=== PATIENT | male | born 1950 | race Caucasian/White ===

== ENCOUNTER 2018-10-02 10:26 | Day surgery (SDC) | payer MEDICARE, OTHER ==
[~2018-10-02 10:26] MED LIST: DEXAMETHASONE SODIUM PHOSPHATE 10 MG/ML VIAL ONE; LACTATED RINGERS 1,000 ML IV.SOLN IV ONE; LIDOCAINE HCL 2% PF 100MG/5ML VIAL IJ ONE; ONDANSETRON HCL/PF 4 MG/ 2ML VIAL ONE; PROPOFOL 200 MG/20 ML VIAL IV ONE; SEVOFLURANE 250 ML LIQUID IH ONE; ceFAZolin SODIUM 1 GM VIAL ONE
[2018-10-02] MEDS ORDERED: fentaNYL CITRATE/PF 100 MCG/2 ML INJ. ONE ×2 (13:10→17:19)
[2018-10-02] MEDS ORDERED: HYDROmorphone HCL/PF 1 MG/ML VIAL ONE (17:19)
--- NOTE | 2018-10-03 15:28 | Operative Note ---
PREOPERATIVE DIAGNOSIS: 1. Carpal tunnel syndrome, left arm. 2. Cubital tunnel syndrome, left arm. POSTOPERATIVE DIAGNOSIS: 1. Carpal tunnel syndrome, left arm. 2. Cubital tunnel syndrome, left arm. PROCEDURES PERFORMED: 1. Endoscopic decompression of the median nerve at the left wrist. 2. Endoscopic decompression of the ulnar nerve at the left wrist. 3. Subcutaneous transposition of the ulnar nerve at the left elbow utilizing the intermuscular septum sling technique. 4. Microscopic fascicular neurolysis of the ulnar nerve at the left elbow. SURGEON: Gage Menchaca Jr., M.D. WATCH SUPERVISOR: None. ANESTHESIA: General. COMPLICATIONS: None. CONDITION FOLLOWING THE PROCEDURE: Good. OPERATIVE FINDINGS: Mr. Shaikh has electromyographically positive and symptomatic carpal tunnel syndrome and cubital tunnel syndrome. Given these abnormalities, and failure to respond to conservative treatment, surgical care was undertaken. This was carried out today. Endoscopic carpal tunnel release provided good visualization of the septum between Guyon's canal and the carpal canal. The ulnar nerve was found to be replaced or invested with a significant amount of fat from chronic pressure. He was transposed and stable in the transposed position and internal neurolysis carried out. DESCRIPTION OF PROCEDURE: The patient was taken to the operating room and placed in supine position. Skin infiltration with 2% lidocaine was carried out on the ulnar side of the wrist proximal to the wrist crease. It was also carried out at the ulnar aspect of the proximal palmar crease. The arm was then thoroughly scrubbed and sterilely prepped and draped. The arm was exsanguinated and tourniquet inflated. A small transverse incision was made on the ulnar aspect proximal to the wrist. Kilgore scissors were then used to penetrate the volar fascia and enter the carpal canal. A skin incision was also made within the skin crease at the confluence of a line extended from the ring finger and a line extended transversely from the base of the thumb-index webspace. The cannula with a boat obturator was then placed into the carpal tunnel through the proximal incision. The floor and the hamate were carefully probed sweeping all tendinous structures and soft tissue structures to the radial side. Keeping the boat obturator and the cannula directed in all the directions, the carpal tunnel was completely traversed holding on the soft tissue and tendinous structures to the radial side. Care was taken not to pass the cannula into Guyon canal. The boat obturator was then led to be externalized through the transverse incisions made in the palm. The opening in the cannula was then directed in the ulnar direction. The obturator was then removed, and the wrist was placed into the holding tray with hyperextension and digits held in extension. A cotton applicator was passed through the cannula. The endoscope was then inserted, visualizing the transverse carpal ligament and its confluence with the Guyon canal. Repositioning would be carried out if any tendinous structures were found creating an obstructive view of the transverse carpal ligament. Once a transverse carpal ligament unobstructed view was obtained, the white handle knife blade was inserted, and the proximal aspect of the transverse carpal ligament in its most ulnar extent was engaged. The knife was advanced, cutting through the layers of the transverse carpal ligament layer by layer until Guyon canal was entered. It was continued distally, and also a retrograded knife was used to engage the most distal aspect of the transverse carpal ligament and usually some hypothenar muscular fibers were engaged as well. Complete unification of the Guyon canal and the carpal canal was thus performed by dividing the transverse carpal ligament at its insertion on the hamate which left the transverse carpal ligament and the covering of the Guyon canal as an intact structure, now away from the hamate and carpus. Good visualization of the ulnar neurovascular bundle was thus afforded. The cannula was then removed; and using a Ragnell retractor and appropriate lighting, the volar fascia was divided under direct visualization proximally and distally from the small transverse hole proximal to the wrist to be sure that it joined and even helped with proper unification. Copious irrigation was followed by closure of the wound with 4-0 Ethilon. A sterile bulky dressing was applied. The affected arm was thoroughly prepped and draped. Tourniquet was inflated after exsanguination. A curvilinear incision was made directly over the ulnar nerve groove on the medial aspect of the elbow. Subcutaneous dissection continued down to the volar forearm fascia. The ulnar nerve was identified proximal to its entrance into the cubital tunnel. A blunt instrument was then placed into the cubital tunnel, which was then sequentially opened with a scalpel, freeing the ulnar nerve. This continued for the distance of 2.5 cm distal to the medial epicondyle into the volar forearm fascia. With Ragnell retractor the muscle, the volar forearm fascia muscular tissue was divided directly over the ulnar nerve, freeing the ulnar nerve from any further fascial tissue and vasculature and areas of compression until the depths of the volar forearm musculature reached and no further compression of the nerve was found. Proximally, separation and neurolysis of the ulnar nerve continued. The intermuscular septum was identified and from tissues using an [employer] retractor to protect the ulnar nerve. The intermuscular septum was developed as a flap attached to the medial epicondyle and divided proximally to yield a 2.5-cm long flap attached to the medial epicondyle. Neurolysis of the ulnar nerve then continued through the cubital tunnel until the ulnar nerve was free and able to be mobilized to the subcutaneous position over the medial epicondyle. The sling fashioned from the intermuscular septum was then passed around the ulnar nerve. The sling had a substantial amount of fat, which was now giving good padding to the ulnar nerve. Using 4-0 Ethibond, the flap of the intermuscular septum was secured to the volar forearm fascia in such a manner to provide a stable fat-laden tunnel over the transposed position anterior to the medial epicondyle. Internal neurolysis of the ulnar nerve was then carried out. Directing attention to the re-entrance of the ulnar nerve into the volar forearm fascia, an additional L-type incision was made in the volar forearm fascia. One limb of the L was recessed and reapproximated to the opposite side of the volar forearm fascia, creating a triangular opening in the volar forearm fascia through which the ulnar nerve now re-entered into the volar forearm muscular mass. This provided a triangular opening, which was not likely to cause fascial compression upon the ulnar nerve as it re-entered the volar forearm musculature. The copious fat of this subcutaneous layer, which had been allowed to remain, was then folded over the top of the ulnar nerve and secured with absorbable sutures. Stainless steel law then approximated the skin. Before effecting closure, the arm was put through range of motion to be sure complete freedom of motion of the ulnar nerve exists and it does not come under significant tension or angular changes during complete flexion or extension. The patient was then taken to the recovery room in good condition. GAGE MENCHACA JR., M.D. JEREMIE/rosa Job #[id number] @ 1725 @ 1508 MTDD
== END 2018-10-02 18:50 | disposition home or self-care (01) ==
LOC: OPSURG 10:26
PROVIDERS: ATTEND Orthopaedic Surgery
DX: G56.02 Carpal tunnel syndrome, left upper limb (principal); G56.22 Lesion of ulnar nerve, left upper limb
CPT/HCPCS: 64718; 64721; J0690; J1170; J2001; J2405; J2704; J3010; J7120